=== PATIENT | male | born 1965 | race Caucasian/White ===

== ENCOUNTER 2017-06-07 14:32 | Emergency (ER) | payer OTHER ==
[2017-06-07 18:33] VITALS: BP 135/91
--- NOTE | 2017-06-07 18:59 | UC ---
Throat Pain/Nasal Lucian HPI - HPI Summary HPI Summary: 52 y/o male presents to the urgent care c/o sore throat, KING , dry cough, body aches, hot and chills for the past 3 days. Pt reports he has a common cold for 3 weeks that it was resolving. But then sore throat began. Pain is 6/10 w/ swallowing. Pt has taking OTC medication and drinking fluids to alleviate symptoms. Pt denies SOB, chest pain, abdominal pain N/V/D - History of Current Complaint Chief Complaint: UCGeneralIllness Stated Complaint: ST Time Seen by Provider: 06/07/17 18:58 Hx Obtained From: Patient Onset/Duration: Gradual Onset Severity: Moderate Pain Intensity: 6 Pain Scale Used: 0-10 Numeric Cough: Nonproductive Associated Signs & Symptoms: Positive: Dysphagia, Nasal Discharge, Fever - Epiglottits Risk Factors Epiglottis Risk Factors: Negative - Allergies/Home Medications Allergies/Adverse Reactions: Allergies Allergy/AdvReac Type Severity Reaction Status Date / Time MS Penicillins [Penicillins] Allergy Unknown Verified 06/07/17 18:33 Reaction Details PMH/Surg Hx/FS Hx/Imm Hx Previously Healthy: Yes Other Neurological History: Insomnia - Surgical History Surgical History: Yes Surgery Procedure, Year, and Place: Appendectomy as child, inguinal hernia repair 1999 - Family History Known Family History: Positive: None - Pt denies FMHX - Social History Occupation: Employed Full-time Lives: With Family Alcohol Use: Occasionally Substance Use Type: None Smoking Status (MU): Heavy Every Day Tobacco Smoker Length of Time of Smoking/Using Tobacco: since age 17 - Immunization History Most Recent Tetanus Shot: states had 5yrs ago Review of Systems Constitutional: Fever - subjective w/ hot and sweats, Chills, Fatigue, Other - body aches Skin: Negative Eyes: Negative ENT: Sore Throat, Nasal Discharge Respiratory: Cough Cardiovascular: Negative Gastrointestinal: Negative Genitourinary: Negative Motor: Negative Neurovascular: Negative Musculoskeletal: Negative Neurological: Headache Psychological: Negative Is Patient Immunocompromised?: No All Other Systems Reviewed And Are Negative: Yes Physical Exam Triage Information Reviewed: Yes Vital Signs: Initial Vital Signs Temp 98.3 F 06/07/17 18:27 Pulse 73 06/07/17 18:27 Resp 12 06/07/17 18:27 BP 135/91 06/07/17 18:27 Pulse Ox 98 06/07/17 18:27 - Additional Comments VITAL SIGNS: Reviewed. GENERAL: Patient is a well developed and nourished male who is sitting comfortable in the examining table. Patient is not in any acute respiratory distress. HEAD AND FACE: No signs of trauma. No ecchymosis, hematomas or skull depressions. No sinus tenderness. edematous erythematous nasal mucosa with yellowish discharge, EYES: PERRLA, EOMI x 2, No injected conjunctiva, clear watery eyes, no nystagmus. No photophobia. EARS: Hearing grossly intact. Ear canals and tympanic membranes are within normal limits. MOUTH: Positive pharynx with erythema, no exudates,no palatal petechiae. no B/L tonsillar enlargement Uvula in midline. NECK: Supple, trachea is midline, Positive anterior cervical lymphadenopathy, no JVD, no carotid bruit, no c-spine tenderness, neck with full ROM. No meningeal signs, no Kernig's or brudzinskis signs. CHEST: Symmetric, no tenderness at palpation LUNGS: Clear to auscultation bilaterally. No wheezing or crackles. CVS: Regular rate and rhythm, S1 and S2 present, no murmurs or gallops appreciated. ABDOMEN: Soft, non-tender. No signs of distention. No rebound no guarding, and no masses palpated. Bowel sounds are normal. EXTREMITIES: FROM in all major joints, no edema, no cyanosis or clubbing. NEURO: Alert and oriented x 3. No acute neurological deficits. Speech is normal and follows commands. SKIN: Dry and warm Throat Pain/Nasal Course/Dx - Course Course Of Treatment: 52 y/o male presents to the urgent care c/o sore throat, KING , dry cough, body aches, hot and chills for the past 3 days. Pt reports he has a common cold for 3 weeks that it was resolving. But then sore throat began. Pain is 8/10 w/ swallowing. Pt has taking OTC medication and drinking fluids to alleviate symptoms. Pt denies SOB, chest pain, abdominal pain N/V/D. Hx obtained. Pt with pharyngitis on examination. Rapid strep ordered, result: negative.Influenza A&B ordered: result: Influenza B positive.Pt Rx Tamiflu and ibuprofen PO to alleviates symptoms. Advised on hand washing and wear a mask to avoid spreading. Pt advised to rest, increase fluid intake, eat well and avoid strenuous exercise. If symptoms do not improve or worsen advised to return to the urgent care or f/u with her PCP for further evaluation and treatment. Pt's BP is elevated today advised to decrease salt in diet, monitor BP and f/u with PCP for further management. Pt understood and agreed with plan of care. - Differential Dx/Diagnosis Differential Diagnosis/HQI/PQRI: Influenza, Mononucleosis, Otitis Media, Pharyngitis, Tonsillitis, URI Provider Diagnoses: 1-Influenza A Discharge - Discharge Plan Condition: Stable Disposition: HOME Prescriptions: Ibuprofen TAB* [Motrin TAB* 800 MG] 800 mg PO Q6H PRN #20 tab PRN Reason: Pain Oseltamivir CAP* [Tamiflu CAP*] 75 mg PO BID #10 cap Patient Education Materials: Influenza (ED), Low-Sodium Diet (ED) Forms: *Work Release Referrals: [facility] [place] [facility]ERR[facility] [Outside] - 3 Days Additional Instructions: 1- Please take the full course of the antiviral to avoid resistance. Encourage hand washing and wear a mask to avoid spreading. 2-Please continue taking Ibuprofen PO q6-8hrs prn as instructed after meals to alleviate fever, and sore throat. Increase fluid intake, eat well, rest and avoid strenuous exercise 3-If symptoms do not improve or worsen please return to the urgent care or f/u with your PCP in 2 days for further evaluation and treatment. 4-Your BP is elevated today. please decrease salt in your diet, monitor BP and if it continues to be elevated please f/u with your PCP for further management
== END 2017-06-07 19:48 | disposition home or self-care (01) ==
LOC: UCCORT 14:32
DX: J09.X2 Influenza due to identified novel influenza A virus with other respiratory manifestations (principal); F17.210 Nicotine dependence, cigarettes, uncomplicated
CPT/HCPCS: 87502; 87651; 99212; G0463

== ENCOUNTER 2018-10-10 09:43 | Emergency (ER) | payer OTHER ==
[2018-10-10 10:00] VITALS: BP 125/85
--- NOTE | 2018-10-10 10:09 | UC ---
Skin Complaint HPI - HPI Summary HPI Summary: 53-year-old male presents with target-like rash to his left side. Patient states that he was participating in a survival camp approximately 3 weeks ago. No known tick bite. Has been developing progressively worsening fatigue since returning about a week ago. States rash started approximately 2 weeks ago. Denies fever, myalgias, joint pain or swelling. - History of Current Complaint Chief Complaint: UCSkin Time Seen by Provider: 10/10/18 10:05 Stated Complaint: SKIN CONCERN ON LEFT SIDE Hx Obtained From: Patient Pain Intensity: 0 - Allergy/Home Medications Allergies/Adverse Reactions: Allergies Allergy/AdvReac Type Severity Reaction Status Date / Time Penicillins Allergy Rash Verified 10/10/18 10:00 PMH/Surg Hx/FS Hx/Imm Hx Previously Healthy: Yes - Denies significant PMH - Surgical History Surgical History: Yes Surgery Procedure, Year, and Place: Appendectomy as child, inguinal hernia repair 1999 - Family History Known Family History: Positive: Non-Contributory - Social History Lives: With Family Alcohol Use: Weekly Substance Use Type: None Smoking Status (MU): Heavy Every Day Tobacco Smoker Type: Cigarettes Amount Used/How Often: 3/4 ppd Length of Time of Smoking/Using Tobacco: since age 17 Have You Smoked in the Last Year: Yes - Immunization History Most Recent Tetanus Shot: states had 5yrs ago Review of Systems All Other Systems Reviewed And Are Negative: Yes Constitutional: Positive: Fatigue. Negative: Fever, Chills Skin: Positive: Rash Respiratory: Positive: Negative Cardiovascular: Positive: Negative Gastrointestinal: Positive: Negative Genitourinary: Positive: Negative Musculoskeletal: Negative: Arthralgia, Myalgia Neurological: Positive: Negative Is Patient Immunocompromised?: No Physical Exam - Summary Physical Exam Summary: GENERAL APPEARANCE: Well developed, well nourished, alert and cooperative, and appears to be in no acute distress. CARDIAC: Normal S1 and S2. No S3, S4 or murmurs. Rhythm is regular. There is no peripheral edema, cyanosis or pallor. Extremities are warm and well perfused. Capillary refill is less than 2 seconds. Peripheral pulses intact. LUNGS: Clear to auscultation without rales, rhonchi, wheezing or diminished breath sounds. ABDOMEN: Positive bowel sounds. Soft, nondistended, nontender. No guarding or rebound. No masses or hepatosplenomegally. MUSKULOSKELETAL: ROM intact to all extremities. No joint erythema or tenderness. Normal muscular development. Normal gait. SKIN: Large oval shaped and target-like erythematous lesion to the right lateral abdomen. Triage Information Reviewed: Yes Vital Signs: Initial Vital Signs Temp 97.9 F 10/10/18 09:53 Pulse 81 10/10/18 09:53 Resp 16 10/10/18 09:53 BP 125/85 10/10/18 09:53 Pulse Ox 100 10/10/18 09:53 Vital Signs Reviewed: Yes Course/Dx - Course Course Of Treatment: 53-year-old male presents with target-like rash to his left side. Patient states that he was participating in a survival camp approximately 3 weeks ago. No known tick bite. Has been developing progressively worsening fatigue since returning about a week ago. States rash started approximately 2 weeks ago. Denies fever, myalgias, joint pain or swelling. Afebrile. Vital signs stable. Patient had a very large oval-shaped, target-like erythematous lesion to the left lateral abdomen and otherwise unremarkable exam. His rash is very suspicious for erythema migrans versus cellulitis therefore we will treat with doxycycline 100 mg twice a day 2 weeks. He has been instructed to follow-up with his primary care provider within 2 weeks for reevaluation and it was explained that he may need to have his treatment extended to a total of 3 weeks if symptoms are not improving. Anticipatory guidance and warning symptoms are reviewed with the patient. He verbalizes understanding and agrees with plan of care. - Differential Diagnoses - Skin Complaint Differential Diagnoses: Cellulitis, Local Allergic Reaction, Tick Born Illness - Diagnoses Provider Diagnosis: Erythema migrans (Lyme disease) Discharge - Sign-Out/Discharge Documenting (check all that apply): Patient Departure All imaging exams completed and their final reports reviewed: No Studies - Discharge Plan Condition: Stable Disposition: HOME Prescriptions: Doxycycline Hyclate 100 mg PO BID #28 tablet Patient Education Materials: Lyme Disease (ED) Referrals: No Primary Care Phys,NOPCP [Primary Care Provider] - Additional Instructions: The rash that you have is very suspicious for Lyme disease therefore we are going to treat you with an antibiotic to treat for this condition. Start doxycycline 100 mg twice a day for 14 days. Do not take any milk products 2 hours before after taking this medication as it may affect the absorption of the antibiotic. This in [place] more sensitive to sun therefore he must take precautions including wearing long sleeves, long pants, hence, and use of sunscreen when you're outdoors to avoid sunburn. Follow-up with your primary care provider within 2 weeks for recheck of your symptoms. Seek immediate medical attention in the emergency room if you develop any fever greater than 100.5 F, you become weak or dizzy, have any chest pain, shortness of breath, or any worsening symptoms. - Billing Disposition and Condition Condition: STABLE Disposition: Home
== END 2018-10-10 10:33 | disposition home or self-care (01) ==
LOC: UCCORT 09:43
DX: A26.0 Cutaneous erysipeloid (principal); F17.210 Nicotine dependence, cigarettes, uncomplicated
CPT/HCPCS: 99212; G0463